=== PATIENT | female | born 1995 ===

== ENCOUNTER 2021-04-19 06:50 | Inpatient (IN) | payer OTHER ==
[~2021-04-19] VITALS: Ht 157.5 cm; Wt 116.1 kg
[~2021-04-19 06:50] MED LIST: AMOCLA875 PO; AZIT500 PO; CHOL10002 PO; FAMO20; FURO40 PO; NAPR500 PO; OXYACE5T PO; Pepcid40 MG PO; Verotin-Gr Cap1 EACH PO; Zofran Odt4 MG SL
[2021-04-19] MEDS ORDERED: ASPI81CH PO (07:18)
[2021-04-19] MEDS ORDERED: SERT50 PO (07:19)
[2021-04-19 07:44] LABS: BASOPHILS ABSOLUTE AUTO 0.05 K/mm3 (0.00-0.23); BASOPHILS PERCENT AUTO 0 % (0-2); EOSINOPHILS ABSOLUTE AUTO 0.17 K/mm3 (0.00-0.68); EOSINOPHILS PERCENT AUTO 1 % (0-6); Hematocrit 36.7 % (33.0-51.0); Hemoglobin 12.2 g/dL (11.5-16.0); IMMATURE GRAN ABSOLUTE AUTO 0.07 K/mm3 (0.00-0.10); IMMATURE GRAN PERCENT AUTO 1 % (0-1); LYMPHOCYTES ABSOLUTE AUTO 2.11 K/mm3 (0.84-5.20); LYMPHOCYTES PERCENT AUTO 16 % (21-46); MONOCYTES ABSOLUTE AUTO 0.64 K/mm3 (0.16-1.47); MONOCYTES PERCENT AUTO 5 % (4-13); Mean Corpuscular HGB 26.3 pg (26.0-34.0); Mean Corpuscular HGB Conc 33.2 g/dL (31.5-36.5); Mean Corpuscular Volume 79 fL (80-100); Mean Platelet Volume 10.5 fL (9.1-12.4); NEUTROPHILS ABSOLUTE AUTO 10.15 K/mm3 (1.96-9.15); NEUTROPHILS PERCENT AUTO 77 % (41-73); Platelet Count 340 K/mm3 (150-400); RDW Coefficient Variation 14.5 % (11.7-14.2); RDW Standard Deviation 41.6 fL (35.1-46.3); Red Blood Cell Count 4.64 M/mm3 (3.80-5.20); White Blood Cell Count 13.19 K/mm3 (4.00-11.30)
--- NOTE | 2021-04-19 10:23 | NUR ---
04/19/21 1023 Krystina Wing VIABLE FEMALE DELIVERED AT 1013 AM. WEIGHING 3340 GRAMS, HEAD 14 INCHES, CHEST 13 INCHES AND LENGTH 20 INCHES. CORD SEGMENT WENT WITH RT MORRISSEY FOR GASES. CORD BLOOD SENT WITH BABY RN MAYLIN Fenton 9/9 APGARS.
[2021-04-19 10:28] LABS: PCO2 Cord - Arterial 52.1 mmHg (40-50); PO2 Cord - Arterial 14.5 mmHg (16-20); pH Cord - Arterial 7.33 (7.28-7.35)
[2021-04-19 10:29] LABS: PCO2 Cord - Venous 42.3 mmHg (40-50); PO2 Cord - Venous 25.1 mmHg (28-32); pH Umbilical Cord - Venous 7.38 (7.26-7.35)
--- NOTE | 2021-04-19 19:42 | NUR ---
Patient didnot have any needs at this time.
--- NOTE | 2021-04-20 06:57 | NUR ---
patient requested assistance with crying baby. Checked diaper and swaddle. Nurse is in room, assisting with breast feeding position.
--- NOTE | 2021-04-20 07:00 | NUR ---
Patient requested help retreiving baby from crib. Handed patient baby so she could position baby on left side breast feeding.
[2021-04-20 08:36] LABS: BASOPHILS ABSOLUTE AUTO 0.05 K/mm3 (0.00-0.23); BASOPHILS PERCENT AUTO 0 % (0-2); EOSINOPHILS ABSOLUTE AUTO 0.16 K/mm3 (0.00-0.68); EOSINOPHILS PERCENT AUTO 1 % (0-6); Hematocrit 40.7 % (33.0-51.0); Hemoglobin 13.2 g/dL (11.5-16.0); IMMATURE GRAN PERCENT AUTO 1 % (0-1); LYMPHOCYTES ABSOLUTE AUTO 1.67 K/mm3 (0.84-5.20); LYMPHOCYTES PERCENT AUTO 11 % (21-46); MONOCYTES ABSOLUTE AUTO 0.61 K/mm3 (0.16-1.47); MONOCYTES PERCENT AUTO 4 % (4-13); Mean Corpuscular HGB 26.4 pg (26.0-34.0); Mean Corpuscular HGB Conc 32.4 g/dL (31.5-36.5); Mean Corpuscular Volume 81 fL (80-100); Mean Platelet Volume 10.5 fL (9.1-12.4); NEUTROPHILS ABSOLUTE AUTO 12.31 K/mm3 (1.96-9.15); NEUTROPHILS PERCENT AUTO 83 % (41-73); Platelet Count 365 K/mm3 (150-400); RDW Coefficient Variation 14.6 % (11.7-14.2); RDW Standard Deviation 42.6 fL (35.1-46.3)
== END 2021-04-21 11:50 | disposition home or self-care (01) | DRG 788 ==
LOC: BC 07:01
PROVIDERS: ADMIT Obstetrics & Gynecology
PROC: 10D00Z1 Extraction of Products of Conception, Low, Open Approach (ICD-10-PCS; principal; 2021-04-19 09:00)
DX: O34.211 Maternal care for low transverse scar from previous cesarean delivery (principal); O99.344 Other mental disorders complicating childbirth; F41.9 Anxiety disorder, unspecified; Z20.822 Contact with and (suspected) exposure to COVID-19; Z79.899 Other long term (current) drug therapy; Z67.30 Type AB blood, Rh positive; Z3A.39 39 weeks gestation of pregnancy; Z37.0 Single live birth
CPT/HCPCS: 36415; 82803; 85025; 86850; 86900; 86901; A9270; J0690; J1200; J2370; J2405; J2590; J2765; J3010; J7120